=== PATIENT | female | born 1955 | race Caucasian/White ===

== ENCOUNTER → 2016-12-13 | Outpatient (CLI) | payer BC, OTHER ==
[~2016-12-13] MED LIST: ACET-1256 PO; OMEP40CA PO; RANI150T3 PO
--- NOTE | 2016-12-13 12:32 | MAMMOGRAPHY REPORT ---
BILATERAL DIGITAL SCREENING MAMMOGRAM TOMOSYNTHESIS WITH CAD: 12/13/2016 CLINICAL HISTORY: Routine screening. Patient has no complaints. TECHNIQUE: Breast tomosynthesis in addition to standard 2D mammography was performed. Current study was also evaluated with a Computer Aided Detection (CAD) system. COMPARISON: Comparison is made to exams dated: 12/13/2015 mammogram, 12/10/2014 mammogram, 12/05/2012 mammogram, 12/02/2012 mammogram, 11/27/2011 mammogram, and 12/08/2013 mammogram - [facility]. BREAST COMPOSITION: There are scattered areas of fibroglandular density in both breasts. FINDINGS: No suspicious masses, calcifications, or areas of architectural distortion are noted in e ither breast. There has been no significant interval change compared to prior exams. IMPRESSION: ACR BI-RADS CATEGORY 1: NEGATIVE There is no mammographic evidence of malignancy. A 1 year screening mammogram is recommended. The p atient will receive written notification of the results. Approximately 10% of breast cancers are not detected with mammography. A negative mammographic repor t should not delay biopsy if a clinically suggestive mass is present. Catia Chowdary M.D. ah/:12/13/2016 10:05:06 [employer] Rater: Sarah Sarkar, [facility] letter sent: Normal 1/2 BI-RADS Code: ACR BI-RADS Category 1: Negative
== END | disposition home or self-care (01) ==
LOC: C.MAMM 07:39
PROVIDERS: ATTEND Obstetrics & Gynecology
DX: Z12.31 Encounter for screening mammogram for malignant neoplasm of breast (principal)

== ENCOUNTER → 2017-01-05 | Outpatient (CLI) | payer BC, OTHER ==
[2017-01-05 12:00] LABS: ALT/SGPT 38 U/L (12-78); AST/SGOT 17 U/L (15-37); BLOOD UREA NITROGEN 18 mg/dl (7-18); BUN/CREATININE RATIO 21.2 (10-20); CALCIUM 9.2 mg/dl (8.5-10.1); CARBON DIOXIDE 29 mmol/L (21-32); CHLORIDE 109 mmol/L (98-107); CREATININE 0.84 mg/dl (0.60-1.20); GLUCOSE 106 mg/dl (70-99); POTASSIUM 4.3 mmol/L (3.5-5.1); SODIUM 143 mmol/L (136-145)
[2017-01-05 12:04] LABS: ALB/GLOB RATIO 1.2 (0.9-2); ALKALINE PHOSPHATASE 72 U/L (45-117); CHOLESTEROL 210 mg/dl (0-200); CHOLESTEROL/HDL RATIO 4.6; HDL CHOLESTEROL 46 mg/dl; LDL CHOLESTEROL CALCULATED 115 mg/dl; TRIGLYCERIDES 243 mg/dl (0-150); VERY LOW DENSITY LIPOPROT CALC 49 mg/dl
[2017-01-05 13:14] LABS: ESTIMATED AVERAGE GLUCOSE 105 mg/dl; HA1C FLAG Normal (Normal)
== END | disposition home or self-care (01) ==
LOC: C.LABBC 09:01
PROVIDERS: ATTEND Internal Medicine
DX: K22.2 Esophageal obstruction (principal); R73.09 Other abnormal glucose; Z11.59 Encounter for screening for other viral diseases

== ENCOUNTER → 2017-10-02 | Day surgery (SDC) | payer BC, OTHER ==
[2017-09-10 10:53] VITALS: Ht 160 cm; Wt 77.3 kg
[~2017-10-02] VITALS: Ht 160 cm; Wt 77.3 kg
[~2017-10-02] MED LIST changes: +ATROPINE SULFATE 0.1 MG/ML 5ML SYR IV PRN; +EpHEDrine SULFATE INJ 50 MG/ML AMP IV PRN; +FENTANYL CITRATE INJ 50 MCG/1 ML 2 ML VIAL ONE; +LIDOCAINE HCL 2% 2 ML VIAL (20MG/ML) ONE; -OMEP40CA PO; +OMEP40CA41 PO; +PROPOFOL IV EMULSION 10 MG/ML 20 ML VIAL IV ONE; +SODIUM CHLORIDE 0.9% 500ML 500 ML IV ONE
--- NOTE | 2017-10-02 12:12 | Endo History and Physical ---
History & Physical Date of Service: Oct 02, 2017. Chief Complaint: Sharma's esophagus,dysphagia Referring Physician: Dr. Oswald Schwartz History of Present Illness 61 yo CF who presents for EGD secondary to Sharma's Esophagus and dysphagia. Past Medical History Arthritis, Gastrointestinal Disorder, Reflux Past Surgical History Hx Cardiac Surgery: No Hx Internal Defibrillator: No Hx Pacemaker: No Hx Abdominal Surgery: Yes (HELGA BSO, ODESSA) Hx of Implantable Prosthesis: No Hx Post-Op Nausea and Vomiting: No Hx Cancer Surgery: No Hx Thoracic Surgery: No Hx Orthopedic: Yes (RT WRIST GANGLION CYSTECTOMY) Hx Urinary Tract Surgery: No Family History Polyp Social History Smoking Status: Never Smoker Hx Substance Use: No Hx Alcohol Use: Yes (SOCIAL) Allergies Coded Allergies: No Known Allergies (Verified , 09/10/17) Current Medications Reported Home Medications Medications Dose Route/Sig Max Daily Dose Days Date Category Prilosec (Omeprazole) 40 Mg Cap 40 Mg PO QAM 09/10/17 Reported Tylenol (Acetaminophen) 500 Mg Tab 1,000 Mg PO Q4 PRN 11/02/14 Reported Zantac (Ranitidine HCl) 150 Mg Tab 150 Mg PO QPM 10/27/14 Reported Vital Signs Weight (Kilograms): 77.27 Height (Feet): 5 Height (Inches): 3 Date Time Temp Pulse Resp B/P (MAP) Pulse Ox O2 Delivery O2 Flow Rate FiO2 10/02/17 12:00 36.4 74 18 119/85 (96) 96 Room Air Physical Exam General Appearance: WD/WN, no apparent distress Respiratory/Chest: Auscultation: breath sounds normal Cardiovascular: Heart Auscultation: RRR Abdomen: Bowel Sounds: normal Inspection & Palpation: soft, non-distended, no tenderness, guarding & rebound Assessment and Plan Assessment: 61 yo CF who presents for EGD secondary to Sharma's Esophagus and dysphagia. Plan: Proceed with EGD.
--- NOTE | 2017-10-02 12:43 | GI REPORT ---
Procedure Date: 10/02/2017 12:08 PM Procedure: Upper GI endoscopy Indications: Dysphagia Medicines: Monitored Anesthesia Care Complications: No immediate complications. Estimated Blood Loss: Estimated blood loss: none. Procedure: Pre-Anesthesia Assessment: - Prior to the procedure, a History and Physical was performed, and patient medications and allergies were reviewed. The patient's tolerance of previous anesthesia was also reviewed. The risks and benefits of the procedure and the sedation options and risks were discussed with the patient. All questions were answered, and informed consent was obtained. Prior Anticoagulants: The patient has taken no previous anticoagulant or antiplatelet agents. ASA Grade Assessment: II - A patient with mild systemic disease. After reviewing the risks and benefits, the patient was deemed in satisfactory condition to undergo the procedure. After obtaining informed consent, the endoscope was passed under direct vision. Throughout the procedure, the patient's blood pressure, pulse, and oxygen saturations were monitored continuously. The scope was introduced through the mouth, and advanced to the second part of duodenum. The upper GI endoscopy was accomplished without difficulty. The patient tolerated the procedure well. Findings: A mild Schatzki ring (acquired) was found in the distal esophagus. A TTS dilator was passed through the scope. Dilation with an 18-19-20 mm balloon dilator was performed to 20 mm. The dilation site was examined and showed no change. This was biopsied with a cold forceps for histology. A small hiatal hernia was present. The examined duodenum was normal. Impression: - Mild Schatzki ring. Dilated. Biopsied. - Small hiatal hernia. - Normal examined duodenum. Recommendation: - Resume previous diet. - Continue present medications. - Await pathology results. - Return to primary care physician as previously scheduled. Sonny Jackson, DO 10/02/2017 12:43:21 PM This report has been signed electronically. Note Initiated On: 10/02/2017 12:08 PM I attest to the content of the Intraoperative Record and orders documented therein, exceptions below
--- NOTE | 2017-10-02 13:07 | Anesthesiology Progress Note ---
Anesthesia Post Op Note Date & Time Oct 02, 2017 at 13:07 Vital Signs Pain Intensity: 0 Vital Signs Past 12 Hours Date Time Temp Pulse Resp B/P (MAP) Pulse Ox O2 Delivery O2 Flow Rate FiO2 10/02/17 12:57 66 16 92/55 (67) 97 Room Air 10/02/17 12:43 74 16 94/59 (71) 96 Room Air 10/02/17 12:00 36.4 74 18 119/85 (96) 96 Room Air Notes Mental Status: alert / awake / arousable, participated in evaluation Pt Amnestic to Procedure: Yes Nausea / Vomiting: adequately controlled Pain: adequately controlled Airway Patency, RR, SpO2: stable & adequate BP & HR: stable & adequate Hydration State: stable & adequate Anesthetic Complications: no major complications apparent
[2017-10-02 13:30] VITALS: BP 115/74; PULSE 63; O2SAT 100
--- NOTE | 2017-10-02 13:35 | Discharge Instructions ---
Endoscopy Patient Instructions Date / Procedure(s) Performed Oct 02, 2017. EGD Allergy Information Coded Allergies: No Known Allergies (Verified , 09/10/17) Discharge Date / Findings Oct 02, 2017. Schatzki's Ring s/p dilation and cold forceps disruption Hiatal hernia Medication Instructions OK to resume all medications today as prescribed Reported Home Medications Medications Dose Route/Sig Max Daily Dose Days Date Category Prilosec (Omeprazole) 40 Mg Cap 40 Mg PO QAM 09/10/17 Reported Tylenol (Acetaminophen) 500 Mg Tab 1,000 Mg PO Q4 PRN 11/02/14 Reported Zantac (Ranitidine HCl) 150 Mg Tab 150 Mg PO QPM 10/27/14 Reported Provider Instructions Activity Restrictions - No exercising or heavy lifting for 24 hours. - Do not drink alcohol the day of the procedure. - Do not drive a car or operate machinery until the day after the procedure. - Do not make any important decisions or sign important papers in 24 hours after the procedure. Following Day: - Return to full activity which may include returning to work/school. Diet Start your diet with liquids and light foods (jello, soup, juice, toast). Then eat your usual diet if not nauseated. Treatment For Common After Affects For mild abdominal pain, bloating, or excessive gas: - Rest - Eat lightly - Lie on right side Follow-Up Information Follow-up with Dr. Oswald Schwartz as scheduled Anesthesia Information What You Should Know You have had a procedure that required some medicine to reduce anxiety and discomfort. This treatment is called moderate sedation. After receiving the treatment, you may be sleepy, but you will be able to breathe on your own. The effects of the treatment may last for several hours. Follow these instructions along with Activity/Diet recommendations noted above: * Do NOT do anything where dizziness or clumsiness would be dangerous. * Rest quietly at home today, then you can be up and about tomorrow. * Have a responsible person stay with you the rest of today. * You may have had an I.V. today. If so, you may take the dressing off later today. Recommendations Call your doctor if: * Trouble breathing * Continuous vomiting for more than 24 hours * Temperature above 101 degrees * Severe abdominal pain or bloating * Pain not relieved by pain medicine ordered * There is increased drainage or redness from any incision * A large amount of rectal bleeding greater than 2-3 tablespoons. (If you had a polyp/s removed or have hemorrhoids, a small amount of blood - from the rectum is to be expected.) * You have any unanswered questions or concerns. IN THE EVENT OF A SERIOUS EMERGENCY, GO TO THE NEAREST EMERGENCY ROOM Your discharge instructions were prepared by provider Sonny Jackson. Patient Instructions Signature Page Brianda Ingram Patient (or Guardian) Signature/Date: I have read and understand the instructions given to me by my caregivers. Caregiver/RN/Doctor Signature/Date: The above-named patient and/or guardian has received patient instructions on this date. + Original Patient Signature Page (only) stays with chart. Please make copy for patient.
== END | disposition home or self-care (01) ==
LOC: C.GI 11:26
PROVIDERS: ATTEND Internal Medicine
DX: R13.10 Dysphagia, unspecified (principal); K22.2 Esophageal obstruction; K22.70 Barrett's esophagus without dysplasia; K21.9 Gastro-esophageal reflux disease without esophagitis; K44.9 Diaphragmatic hernia without obstruction or gangrene; M19.90 Unspecified osteoarthritis, unspecified site

== ENCOUNTER → 2017-12-17 | Outpatient (CLI) | payer BC, OTHER ==
[~2017-12-17] MED LIST changes: -ATROPINE SULFATE 0.1 MG/ML 5ML SYR IV PRN; -EpHEDrine SULFATE INJ 50 MG/ML AMP IV PRN; -FENTANYL CITRATE INJ 50 MCG/1 ML 2 ML VIAL ONE; -LIDOCAINE HCL 2% 2 ML VIAL (20MG/ML) ONE; -PROPOFOL IV EMULSION 10 MG/ML 20 ML VIAL IV ONE; -SODIUM CHLORIDE 0.9% 500ML 500 ML IV ONE
--- NOTE | 2017-12-25 07:32 | MAMMOGRAPHY REPORT ---
BILATERAL DIGITAL SCREENING MAMMOGRAM TOMOSYNTHESIS WITH CAD: 12/17/2017 CLINICAL HISTORY: Routine screening. TECHNIQUE: Breast tomosynthesis in addition to standard 2D mammography was performed. Current study was also evaluated with a Computer Aided Detection (CAD) system. COMPARISON: Comparison is made to exams dated: 12/13/2016 mammogram, 12/13/2015 mammogram, 12/10/2014 m ammogram, 12/08/2013 mammogram, 12/02/2012 mammogram, and 11/27/2011 mammogram - [facility]ter. BREAST COMPOSITION: There are scattered areas of fibroglandular density in both breasts. FINDINGS: The parenchymal pattern is unchanged. No developing mass, architectural distortion or clus ter of suspicious microcalcifications is seen in either breast. IMPRESSION: ACR BI-RADS CATEGORY 2: BENIGN There is no mammographic evidence of malignancy. A 1 year screening mammogram is recommended. The pa tient will receive written notification of the results. Approximately 10% of breast cancers are not detected with mammography. A negative mammographic report should not delay biopsy if a clinically suggestive mass is present. Nithya Obrien M.D. ay/:12/17/2017 08:32:48 Manager Community Relations: Dav BURNETT(R)(M), [facility] letter sent: Normal 1/2 BI-RADS Code: ACR BI-RADS Category 2: Benign
== END | disposition home or self-care (01) ==
LOC: C.MAMM 07:35
PROVIDERS: ATTEND Obstetrics & Gynecology
DX: Z12.31 Encounter for screening mammogram for malignant neoplasm of breast (principal)

== ENCOUNTER 2018-01-05 10:32 | Emergency (ER) | payer BC, OTHER ==
[~2018-01-05] VITALS: Ht 160 cm; Wt 80.7 kg
[2018-01-05 10:45] VITALS: TEMP 36.8; Ht 160 cm; Wt 80.7 kg
[2018-01-05] MEDS ORDERED: MECLIZINE HCL 25 MG TAB PO STA (11:11)
[2018-01-05] MEDS ORDERED: ONDANSETRON 8 MG/54 ML D5W IV STA (11:11)
[2018-01-05] MEDS ORDERED: SODIUM CHLORIDE 0.9% 1000ML 1,000 ML IV STA (11:11)
[2018-01-05 11:32] LABS: BASO % 0.6 %; BASO ABS # 0.03 K/uL (0-0.2); EOS % 2.3 %; EOS ABS # 0.12 K/uL (0-0.5); HEMOGLOBIN 14.9 g/dL (12.0-16.0); IG# 0.02 K/uL (0.00-0.02); LYMPH % 29.9 %; LYMPH ABS # 1.56 K/uL (1.2-3.4); MEAN CELL VOLUME 85.5 fL (80-100); MEAN CORPUSCULAR HEMOGLOBIN 29.6 pg (25-34); MEAN CORPUSCULAR HGB CONC 34.7 g/dl (32-36); MEAN PLATELET VOLUME 8.5 fL (7.4-10.4); MONO % 6.1 %; MONO ABS # 0.32 K/uL (0.11-0.59); NEUT % 60.7 %; NEUT ABS # 3.16 K/uL (1.4-6.5); PLATELET COUNT 277 K/uL (130-400); RED CELL DISTRIBUTION WIDTH CV 13.7 % (11.5-14.5); RED CELL DISTRIBUTION WIDTH SD 42.4 fL (36.4-46.3); WHITE BLOOD COUNT 5.21 K/uL (4.8-10.8)
[2018-01-05 11:44] LABS: INR 0.9 (0.9-1.1); PTT PATIENT 26.7 SECONDS (21.0-31.0)
--- NOTE | 2018-01-05 11:53 | DIAGNOSTIC IMAGING REPORT ---
CT HEAD WITHOUT CONTRAST (CT) CLINICAL HISTORY: Altered mental status, dizziness, nausea. Weakness. COMPARISON STUDY: No previous studies for comparison. TECHNIQUE: Axial CT of the brain is performed from the vertex to the skull base. IV contrast was not administered for this examination. A dose lowering technique was utilized adhering to the principles of ALARA. CT DOSE: 537.48 mGy.cm FINDINGS: No intra or extra-axial mass lesions are visualized. There is no CT evidence of acute cortical infarction. There is no evidence of midline shift. There is no acute hemorrhage. No calvarial fractures are visualized. There are minimal white matter hypodensities likely on a small vessel basis. There is no evidence of pathologic ventricular dilatation. There is no evidence of acute sinusitis IMPRESSION: No acute intracranial findings Electronically signed by: Matteo Handy M.D. 01/05/2018 11:51 AM Dictated Date/Time: 01/05/2018 11:51 AM
[2018-01-05 12:10] LABS: ALT/SGPT 83 U/L (12-78); AST/SGOT 45 U/L (15-37); BLOOD UREA NITROGEN 20 mg/dl (7-18); CALCIUM 9.3 mg/dl (8.5-10.1); CARBON DIOXIDE 28 mmol/L (21-32); CREATININE 0.89 mg/dl (0.60-1.20); GLUCOSE 129 mg/dl (70-99); LIPASE 136 U/L (73-393); POTASSIUM 4.1 mmol/L (3.5-5.1); SODIUM 139 mmol/L (136-145)
--- NOTE | 2018-01-05 12:15 | DIAGNOSTIC IMAGING REPORT ---
CHEST ONE VIEW PORTABLE CLINICAL HISTORY: Altered mental status and weakness COMPARISON STUDY: 02/04/2015 FINDINGS: The heart is at the upper limits of normal in size. There is a suspected small hiatal hernia. There is no focal pulmonary consolidation. There is slight interstitial prominence without evidence of overt failure. There are no significant pleural effusions.[ IMPRESSION: AP portable study. No evidence of focal pulmonary consolidation. Mild interstitial prominence without evidence of overt failure Electronically signed by: Matteo Handy M.D. 01/05/2018 12:14 PM Dictated Date/Time: 01/05/2018 12:13 PM
[2018-01-05 12:18] LABS: ALKALINE PHOSPHATASE 88 U/L (45-117); CKMB 0.6 ng/ml (0.5-3.6); TOTAL PROTEIN 7.9 gm/dl (6.4-8.2)
--- NOTE | 2018-01-05 12:49 | EMERGENCY ROOM VISIT NOTE ---
History Report prepared by Ryan: Navjot Connolly Under the Supervision of: Dr. Vinayak Rascon D.O. First contact with patient: 11:03 Chief Complaint: DIZZY Stated Complaint: VERY DIZZY, NAUSEA, SHAKEY History of Present Illness The patient is a 62 year old female who presents to the Emergency Room with complaints of intermittent dizziness that began 3 hours ago. She rates this pain as 0/10. She states she has episodes lasting 3 minutes which occur every 15 minutes. She states that she has associated intermittent waves of nausea. She reports that the dizziness also causes her vision to blur. The patient states that standing up worsens her dizziness. She reports that she has had normal PO intake. She states that she does have a history of vertigo which is related to fluid in her ear but states that her current dizziness is worse. She denies headaches, vomiting, recent illness, and weakness in her extremities. Source of History: patient Onset: 3 hours ago Position: head Symptom Intensity: pain rated as 0/10 Quality: other (dizziness) Timing: intermittent Modifying Factors (Worsening): other (standing up) Associated Symptoms: + nausea, No headache, No vomiting, No weakness Note: Patient reports blurry vision. Review of Systems See HPI for pertinent positives & negatives. A total of 10 systems reviewed and were otherwise negative. Past Medical & Surgical Medical Problems: (1) Colitis Social History Smoking Status: Never Smoker Smokeless Tobacco Use: No Alcohol Use: none Drug Use: none Current/Historical Medications Scheduled Omeprazole (Prilosec), 40 MG PO QAM Ranitidine Hcl (Zantac), 150 MG PO QPM Allergies Coded Allergies: No Known Allergies (Verified , 01/05/18) Physical Exam Vital Signs Date Time Temp Pulse Resp B/P (MAP) Pulse Ox O2 Delivery O2 Flow Rate FiO2 01/05/18 11:58 68 18 124/90 97 Room Air 01/05/18 11:38 71 01/05/18 10:45 36.8 79 18 140/99 97 Room Air Physical Exam VITAL SIGNS: were reviewed as above. GENERAL:Non-toxic in appearance. Symptoms were precipitated by having the patient stand but she was able to walk across the room without difficulty. SKIN: Warm dry and pink. HEAD: Normocephalic and atraumatic. OROPHARYNX: Is clear and moist NECK: Supple without lymphadenopathy or meningismus. LUNGS: clear. HEART: Regular rate and rhythm. ABDOMEN: Soft and nontender. EXTREMITIES: Warm and well perfused. NEUROLOGICALLY: Awake alert and oriented without focal deficit. Cranial nerves 2 -12 are intact. There is no pronator drift. Cerebellar testing is within normal limits. There is no nystagmus. There is no facial droop. Speech is clear. Vision is grossly normal. MUSCULOSKELETAL: Good muscle tone. No evidence of trauma. Medical Decision & Procedures ER Provider Diagnostic Interpretation: Radiology results as stated below per my review and radiologist interpretation: CT HEAD WITHOUT CONTRAST (CT) CLINICAL HISTORY: Altered mental status, dizziness, nausea. Weakness. COMPARISON STUDY: No previous studies for comparison. TECHNIQUE: Axial CT of the brain is performed from the vertex to the skull base. IV contrast was not administered for this examination. A dose lowering technique was utilized adhering to the principles of ALARA. CT DOSE: 537.48 mGy.cm FINDINGS: No intra or extra-axial mass lesions are visualized. There is no CT evidence of acute cortical infarction. There is no evidence of midline shift. There is no acute hemorrhage. No calvarial fractures are visualized. There are minimal white matter hypodensities likely on a small vessel basis. There is no evidence of pathologic ventricular dilatation. There is no evidence of acute sinusitis IMPRESSION: No acute intracranial findings Electronically signed by: Matteo Handy M.D. 01/05/2018 11:51 AM Dictated Date/Time: 01/05/2018 11:51 AM CHEST ONE VIEW PORTABLE CLINICAL HISTORY: Altered mental status and weakness COMPARISON STUDY: 02/04/2015 FINDINGS: The heart is at the upper limits of normal in size. There is a suspected small hiatal hernia. There is no focal pulmonary consolidation. There is slight interstitial prominence without evidence of overt failure. There are no significant pleural effusions.[ IMPRESSION: AP portable study. No evidence of focal pulmonary consolidation. Mild interstitial prominence without evidence of overt failure Electronically signed by: Matteo Handy M.D. 01/05/2018 12:14 PM Dictated Date/Time: 01/05/2018 12:13 PM Laboratory Results 01/05/18 11:19 Red Blood Count 5.03, Mean Corpuscular Volume 85.5, Mean Corpuscular Hemoglobin 29.6, Mean Corpuscular Hemoglobin Concent 34.7, Mean Platelet Volume 8.5, Neutrophils (%) (Auto) 60.7, Lymphocytes (%) (Auto) 29.9, Monocytes (%) (Auto) 6.1, Eosinophils (%) (Auto) 2.3, Basophils (%) (Auto) 0.6, Neutrophils # (Auto) 3.16, Lymphocytes # (Auto) 1.56, Monocytes # (Auto) 0.32, Eosinophils # (Auto) 0.12, Basophils # (Auto) 0.03 01/05/18 11:19 Test 01/05/18 11:19 01/05/18 11:24 White Blood Count 5.21 K/uL (4.8-10.8) Red Blood Count 5.03 M/uL (4.2-5.4) Hemoglobin 14.9 g/dL (12.0-16.0) Hematocrit 43.0 % (37-47) Mean Corpuscular Volume 85.5 fL (80-100) Mean Corpuscular Hemoglobin 29.6 pg (25-34) Mean Corpuscular Hemoglobin Concent 34.7 g/dl (32-36) Platelet Count 277 K/uL (130-400) Mean Platelet Volume 8.5 fL (7.4-10.4) Neutrophils (%) (Auto) 60.7 % Lymphocytes (%) (Auto) 29.9 % Monocytes (%) (Auto) 6.1 % Eosinophils (%) (Auto) 2.3 % Basophils (%) (Auto) 0.6 % Neutrophils # (Auto) 3.16 K/uL (1.4-6.5) Lymphocytes # (Auto) 1.56 K/uL (1.2-3.4) Monocytes # (Auto) 0.32 K/uL (0.11-0.59) Eosinophils # (Auto) 0.12 K/uL (0-0.5) Basophils # (Auto) 0.03 K/uL (0-0.2) RDW Standard Deviation 42.4 fL (36.4-46.3) RDW Coefficient of Variation 13.7 % (11.5-14.5) Immature Granulocyte % (Auto) 0.4 % Immature Granulocyte # (Auto) 0.02 K/uL (0.00-0.02) Prothrombin Time 9.7 SECONDS (9.0-12.0) Prothromb Time International Ratio 0.9 (0.9-1.1) Activated Partial Thromboplast Time 26.7 SECONDS (21.0-31.0) Partial Thromboplastin Ratio 1.0 Anion Gap 1.0 mmol/L (3-11) Est Creatinine Clear Calc Drug Dose 67.6 ml/min Estimated GFR () 81.6 Estimated GFR (Non- 70.4 BUN/Creatinine Ratio 22.4 (10-20) Calcium Level 9.3 mg/dl (8.5-10.1) Magnesium Level 2.1 mg/dl (1.8-2.4) Total Bilirubin 0.7 mg/dl (0.2-1) Direct Bilirubin 0.1 mg/dl (0-0.2) Aspartate Amino Transf (AST/SGOT) 45 U/L (15-37) Alanine Aminotransferase (ALT/SGPT) 83 U/L (12-78) Alkaline Phosphatase 88 U/L (45-117) Total Creatine Kinase 55 U/L (26-192) Creatine Kinase MB 0.6 ng/ml (0.5-3.6) Creatine Kinase MB Ratio 1.1 (0-3.0) Troponin I < 0.015 ng/ml (0-0.045) Total Protein 7.9 gm/dl (6.4-8.2) Albumin 4.0 gm/dl (3.4-5.0) Lipase 136 U/L (73-393) Thyroid Stimulating Hormone (TSH) 0.891 uIu/ml (0.300-4.500) Urine Color YELLOW Urine Appearance CLEAR (CLEAR) Urine pH 5.0 (4.5-7.5) Urine Specific [place] 1.026 (1.000-1.030) Urine Protein NEG (NEG) Urine Glucose (UA) NEG (NEG) Urine Ketones NEG (NEG) Urine Occult Blood NEG (NEG) Urine Nitrite NEG (NEG) Urine Bilirubin NEG (NEG) Urine Urobilinogen NEG (NEG) Urine Leukocyte Esterase NEG (NEG) Urine WBC (Auto) 1-5 /hpf (0-5) Urine RBC (Auto) 0-4 /hpf (0-4) Urine Hyaline Casts (Auto) 1-5 /lpf (0-5) Urine Epithelial Cells (Auto) 20-30 /lpf (0-5) Urine Bacteria (Auto) NEG (NEG) Laboratory results as stated above per my review. Medications Administered Medications (Trade) Dose Ordered Sig/Bertha Route Start Time Stop Time Status Last Admin Dose Admin Sodium Chloride 1,000 ml @ 999 mls/hr Q1H1M STAT IV 01/05/18 11:11 01/05/18 12:11 DC 01/05/18 11:22 999 MLS/HR Meclizine HCl (Antivert Tab) 25 mg NOW STAT PO 01/05/18 11:11 01/05/18 11:12 DC 01/05/18 11:20 25 MG Ondansetron HCl (Zofran 8mg Iv) 8 mg NOW STAT IV 01/05/18 11:11 01/05/18 11:12 DC 01/05/18 11:11 8 MG ECG Per My Interpretation Indication: nausea Rate (beats per minute): 72 Rhythm: normal sinus Findings: no ectopy, other (No ST Elevation) ED Course 1103: Previous medical records were reviewed. The patient was evaluated in room C11B. A complete history and physical examination was performed. 1111: Zofran, 8 mg, IV; Antivert Tab, 25 mg, PO; Sodium Chloride 1000 ml @ 999 mls/hr IV. 1255: On reevaluation, the patient is resting. I discussed the results and findings with the patient. She verbalized agreement of the treatment plan. She was discharged home. Medical Decision Differential includes acute coronary syndrome, myocardial infarction, CVA, TIA, anemia, infection, pneumonia, UTI, pyelonephritis, poor nutrition, dehydration, electrolyte disturbance,hypoglycemia. This is a 62-year-old female who presents to the ED with a chief complaint of dizziness. The patient states that when she woke this morning she felt dizzy. She does report a history of vertigo but the symptoms seem a little different and worse. She states that the symptoms come and go and the last for about 3 minutes and it occurs about every 15 minutes or so. She denies headaches or recent illness. No trauma. No focal weakness. Her physical neurologic exam was unremarkable. She was able to ambulate without difficulty and the ED although standing up seem to precipitate the symptoms a little. Her vital signs are normal. CT scan of the brain was negative for acute disease as well as a chest x-ray. CBC is normal, BUN is 20 and chemistry panel was unremarkable. Troponin was negative, urine did not show infection and an EKG shows sinus rhythm. The patient was treated with oral meclizine, IV fluids and IV Zofran. She was feeling at least 70% better. She was offered prescriptions for Zofran and meclizine but declined them. She is felt to be stable for discharge. Medication Reconcilliation Current Medication List: was personally reviewed by me Blood Pressure Screening Patient's blood pressure: Normal blood pressure Blood pressure disposition: Did not require urgent referral Impression Primary Impression: Dizziness Scribe Attestation The scribe's documentation has been prepared under my direction and personally reviewed by me in its entirety. I confirm that the note above accurately reflects all work, treatment, procedures, and medical decision making performed by me. Departure Information Dispostion Home / Self-Care Referrals Oswald Schwartz M.D. (PCP) Patient Instructions ED Fall Dizziness Weakn Balance, My [facility] Additional Instructions Follow-up with your doctor for further care and evaluation in 1-2 days. Return to the emergency department for worsening or new symptoms or any concerns. You have been examined and treated today on an emergency basis only. This is not a substitute for, or an effort to provide, complete comprehensive medical care. It is impossible to recognize and treat all injuries or illnesses in a single emergency department visit. It is therefore important that you follow up closely with your doctor. Call as soon as possible for an appointment.
[2018-01-05 12:57] VITALS: BP 124/90; PULSE 68; O2SAT 97
== END 2018-01-05 12:58 | disposition home or self-care (01) ==
LOC: C.EDB 10:33 → C.EDC 12:58
DX: R42 Dizziness and giddiness (principal)

== ENCOUNTER → 2018-01-09 | Outpatient (CLI) | payer BC, OTHER ==
[~2018-01-09] MED LIST changes: -ACET-1256 PO
[2018-01-09 12:01] LABS: HEMOGLOBIN A1C 5.6 % (4.5-5.6)
== END | disposition home or self-care (01) ==
LOC: C.LABBC 09:13
PROVIDERS: ATTEND Physician Assistant Medical
DX: E78.1 Pure hyperglyceridemia (principal); R73.09 Other abnormal glucose